=== PATIENT | male | born 1955 | race African-American/Black ===

== ENCOUNTER → 2018-09-03 | Day surgery (SDC) | payer BC ==
[2018-09-02 10:18] LABS: ANION GAP 13.5 mmol/L (8-16); BLOOD UREA NITROGEN 14 mg/dL (7-26); BUN/CREATININE RATIO 17 (6-25); CALCIUM 9.5 mg/dL (8.4-10.2); CARBON DIOXIDE 29 mmol/L (22-29); CHLORIDE 103 mmol/L (98-107); CREATININE, SERUM 0.82 mg/dL (0.72-1.25); EST GLOMERULAR FILTRATION RATE > 60 ML/MIN (60-); GLUCOSE 154 mg/dL (74-118); POTASSIUM 3.5 mmol/L (3.5-5.1); SODIUM 142 mmol/L (136-145)
[~2018-09-03] MED LIST: CLINDAMYCIN 600MG / 50ML 50 ML IV ONE; CRESTOR10 MG; FENTANYL CITRATE/PF 100MCG/2 ML INJ ONE; HYZAAR 50-12.51 EACH; JARDIANCE; LIDOCAINE HCL 2% LOCAL INJ 5 ML SDV VIAL INJ ONE; MIDAZOLAM HCL 2 MG/2 ML VIAL ONE; NORVIR100 MG; NOVOLOG100 UNIT/1; ONDANSETRON HCL INJ 2 MG/ML VIAL ONE; PREZISTA600 MG; PROPOFOL IV EMULSION 10 MG/ML 20 ML VIAL ONE; SEVOFLURANE INHAL SOLN 250 ML PEN BTL ONE; TOUJEO; TRUVADA 200 MG1 EACH; VALACYCLOVIR500 MG PO; VICTOZA 2-0.6 MG/0.1
--- OUTSIDE RECORDS SUMMARY | 2018-09-03 08:32 | XMS REPORT | Clinical Summary ---
Author Author [facility] Organization [facility] Address Unknown Phone Unavailable Care Team Providers Care Assistant Portfolio Manager Name Role Phone Aaron Mcgill MD PCP Allergies Active Allergy Reactions Severity Noted Date Comments Penicillins Shortness Of Breath High 01/22/2017 Sulfa (Sulfonamide Shortness Of Breath High 01/22/2017 Antibiotics) Current Medications Prescription Sig. Disp. Refills Start End Date Status Date VICTOZA 3-WANDA 0.6 mg/0.1 Inject 1.8 mg under the 01/14/20 Active mL (18 mg/3 mL) pen skin daily. 17 injector BD ULTRA-FINE ANTHONY PEN See Admin Instructions. 1 01/04/20 Active NEEDLES 32 gauge x 5/32" 17 needle NYSTOP 100,000 unit/gram Apply 1 application 15 g 2 05/28/20 Active powder topically daily. 17 insulin GLARGINE (TOUJEO Inject under the skin. Active SOLOSTAR) 300 unit/mL (1.5 mL) insulin pen empagliflozin (JARDIANCE) Take 1 tablet (25 mg 30 tablet 0 07/02/20 Active 25 mg tablet total) by mouth daily. 18 insulin ASPART (NovoLOG Inject 12 Units under the 10 mL 12 07/02/20 Active U-100 Insulin aspart) 100 skin 3 (three) times a 18 unit/mL injection day before meals. losartan-hydrochlorothiaz Take 1 tablet by mouth 90 tablet 1 07/02/20 Active naomi (HYZAAR) 50-12.5 mg once daily. 18 per tablet valACYclovir (VALTREX) Take 1 tablet (500 mg 90 tablet 1 07/02/20 Active 500 MG tablet total) by mouth once 18 daily. rosuvastatin (CRESTOR) 20 Take 1 tablet (20 mg 90 tablet 1 07/02/20 Active MG tablet total) by mouth once 18 daily. [id number] Take 1 Box by mouth 1 each 0 07/26/20 Active [id number] daily. 18 (MOVIPREP) 100-7.5-2.691 gram powder in packetIndications: Family history of colon cancer darunavir ethanolate Take 1 tablet (800 mg 90 tablet 1 08/01/20 10/30/19 Active (PREZISTA) 800 mg total) by mouth daily for 18 19 tabletIndications: HIV 90 days. (human immunodeficiency virus infection) ([facility]) emtricitabine-tenofovir Take 1 tablet by mouth 90 tablet 1 08/01/20 10/30/19 Active DF (TRUVADA) 200-300 mg daily for 90 days. 18 19 per tabletIndications: HIV (human immunodeficiency virus infection) ([facility]) ritonavir (NORVIR) 100 mg Take 1 capsule (100 mg 90 capsule 1 08/01/20 10/30/19 Active capsuleIndications: HIV total) by mouth daily for 18 19 (human immunodeficiency 90 days. virus infection) ([facility]) LEVEMIR FLEXTOUCH 100 Inject 1 mL as directed 3 12/22/19 07/02/20 Discontin unit/mL (3 mL) insulin daily. 17 18 ued pen ritonavir (NORVIR) 100 mg Take 100 mg by mouth 08/01/20 Discontin capsule daily. 18 ued darunavir (PREZISTA) 800 Take 800 mg by mouth 08/01/20 Discontin mg tablet daily. 18 ued insulin asp prt-insulin Inject under the skin. 07/02/20 Discontin ASPART (NovoLOG 70/30) 18 ued 100 unit/mL (70-30) injection levalbuterol (XOPENEX Inhale 1-2 puffs every 4 15 g 11 02/15/20 02/15/20 HFA) 45 mcg/actuation (four) hours as needed 17 18 inhaler for wheezing. losartan-hydrochlorothiaz Take 1 tablet by mouth 90 tablet 2 05/28/20 03/10/20 Discontin naomi (HYZAAR) 50-12.5 mg once daily. 17 18 ued per tablet valACYclovir (VALTREX) Take 1 tablet (500 mg 90 tablet 2 05/28/20 05/19/20 Discontin 500 MG tablet total) by mouth once 17 18 ued daily. rosuvastatin (CRESTOR) 20 Take 1 tablet (20 mg 90 tablet 2 05/28/20 03/10/20 Discontin MG tablet total) by mouth once 17 18 ued daily. triamcinolone (KENALOG) Apply topically 2 (two) 80 g 0 05/28/20 05/28/20 0.025 % ointment times a day. 17 18 rosuvastatin (CRESTOR) 20 TAKE 1 TABLET (20 MG 90 tablet 2 03/11/20 07/02/20 Discontin MG tablet TOTAL) BY MOUTH ONCE 18 18 ued DAILY. losartan-hydrochlorothiaz TAKE 1 TABLET BY MOUTH 90 tablet 2 03/11/20 07/02/20 Discontin naomi (HYZAAR) 50-12.5 mg ONCE DAILY. 18 18 ued per tablet valACYclovir (VALTREX) TAKE 1 TABLET (500 MG 90 tablet 2 05/20/20 05/28/20 Discontin 500 MG tablet TOTAL) BY MOUTH ONCE 18 18 ued DAILY. valACYclovir (VALTREX) TAKE 1 TABLET (500 MG 90 tablet 2 05/28/20 07/02/20 Discontin 500 MG tablet TOTAL) BY MOUTH ONCE 18 18 ued DAILY. emtricitabine-tenofovir Take 1 tablet by mouth 30 tablet 0 07/02/20 08/01/20 Discontin DF (TRUVADA) 200-300 mg daily. 18 18 ued per tablet Active Problems Problem Noted Date Polyp of colon 07/24/2018 Family history of colon cancer 07/24/2018 S/P partial colectomy 07/24/2018 Type 2 diabetes mellitus without complication, with long-term current use 03/01/2017 of insulin (HCC) Overview: No diabetic retinopathy Vision can fluctuate with changing blood glucose Combined forms of age-related cataract 03/01/2017 Overview: NSC, Cortical Defer surgery, near 20/20 OU with correction PVD (posterior vitreous detachment) 03/01/2017 Overview: No retinal breaks or tears History of radial keratotomy 03/01/2017 Overview: 8 cut OU Vision can fluctuate Encounters Date Type Specialty Care Team Description 09/02/2018 Clinical Infectious Diseases Norah Gonzalez MD Need for vaccination Support (Primary Dx) 08/12/2018 [facility] Gastroenterology Charan Medina MD Type 2 diabetes mellitus Encounter without complication, with long-term current use of insulin (HCC) (Primary Dx) 08/12/2018 Procedure Pass Gastroenterology 08/12/2018 Surgery Gastroenterology Charan Medina MD COLONOSCOPY with cold snare and cold biopsy polypectomy 08/10/2018 Anesthesia Gastroenterology Josef Banegas MD 08/09/2018 Telephone Gastroenterology Debra Zuniga MA 08/09/2018 Orders Only Gastroenterology Debra Zuniga MA 08/01/2018 Office Visit Infectious Diseases Norah Gonzalez MD HIV (human immunodeficiency virus infection) (HCC) (Primary Dx); custodial use of drug 07/26/2018 Orders Only Gastroenterology Debra Zuniga MA Family history of colon cancer (Primary Dx) 07/26/2018 Telephone Gastroenterology Debra Zuniga MA 07/24/2018 Office Visit Gastroenterology Charan Medina MD Polyp of colon, unspecified part of colon, unspecified type (Primary Dx); Family history of colon cancer; S/P partial colectomy 07/16/2018 Telephone Gastroenterology Nelson Bazan MD 07/09/2018 Orders Only Infectious Diseases Norah Gonzalez MD Human immunodeficiency virus I infection (Primary Dx); custodial use of drug 07/02/2018 Office Visit Family Medicine Aaron Mcgill MD Encounter for general adult medical examination with abnormal findings (Primary Dx); Hyperlipidemia, unspecified hyperlipidemia type; HIV (human immunodeficiency virus infection); Vitamin D deficiency; Essential hypertension; Type 2 diabetes mellitus without complication, with long-term current use of insulin; Colon cancer screening; Flu vaccine need 05/28/2018 Refill Family Aaron Rangel MD 05/19/2018 Refill Family Aaron Rangel MD 03/10/2018 Refill Family Medicine Aaron Mcgill MD after 09/02/2017 Immunizations Name Dates Previously Given Next Due FLUBLOK QUAD PF 07/02/2018 Hep A / Hep B 09/02/2018, 08/01/2018, 11/02/2010 Hep B, Unspecified 08/17/2011 INFLUENZA QUAD 07/29/2010 Pneumococcal Conjugate 06/15/2016 13-Valent Pneumococcal 06/28/2010 Polysaccharide Family History Medical History Relation Name Comments Cancer Father unknown Heart disease Father Heart failure Father Diabetes Mother Cancer Paternal stomach Uncle Cancer Paternal pancreatic Uncle Relation Name Status Comments Father Mother Paternal Uncle Paternal Uncle Social History Tobacco Use Types Packs/Day Years Used Date Former Smoker Cigarettes Smokeless Tobacco: Never Used Tobacco Cessation: Counseling Given: Yes Comments: quit at age of 18 years Alcohol Use Drinks/Week oz/Week Comments Yes occasionally Sex Assigned at Date Recorded Not on file Last Filed Vital Signs Vital Sign Reading Time Taken Blood Pressure 125/70 09/02/2018 2:17 PM [employer] Pulse 103 09/02/2018 2:17 PM [employer] Temperature 36.4 C (97.6 F) 09/02/2018 2:17 PM [employer] MANA[employer] Respiratory Rate 14 08/12/2018 9:59 AM CDT Oxygen Saturation 97% 09/02/2018 2:17 PM [employer] MANA[employer] Inhaled Oxygen - - Concentration Weight 110 kg (242 lb) 08/12/2018 7:17 AM CDT Height 165.1 cm (5' 5") 08/12/2018 7:17 AM CDT Body Mass Index 40.27 08/12/2018 7:17 AM CDT Plan of Treatment Date Type Specialty Care Team Description 12/05/2018 Office Visit Infectious Diseases Norah Gonzalez MD [address] [place] [address] [phone] 12/30/2018 Office Visit Family Medicine Aaron Mcgill MD [address] [facility] [address] [place] [address] [phone] 01/30/2019 Clinical Infectious Diseases Support Health Maintenance Due Date Last Done Comments DIABETIC FOOT EXAM 1965 COLON CANCER SCREENING 2005 SHINGRIX VACCINE (#1) 2005 ZOSTER VACCINE 2015 DIABETIC RETINAL EYE EXAM 03/01/2018 03/01/2017, 03/01/2017, 03/01/2017, Additional history exists INFLUENZA VACCINE Completed 07/02/2018, 07/29/2010 Procedures Procedure Name Priority Date/Time Associated Diagnosis Comments SURGICAL PATHOLOGY Routine 08/12/2018 Results for this REQUEST 11:32 AM CDT procedure are in the results section. POC GLUCOSE Routine 08/12/2018 Results for this 9:37 AM CDT procedure are in the results section. COLONOSCOPY 08/12/2018 Colon polyps 9:00 AM CDT POC GLUCOSE Routine 08/12/2018 Results for this 7:24 AM CDT procedure are in the results section. TB GOLD QUANTIFERON Routine 07/15/2018 Human immunodeficiency Results for this 2:03 PM CDT virus I infection procedure are in the termite helper use of drug results section. RPR (MONITOR) WITH REFLEX Routine 07/15/2018 Human immunodeficiency Results for this TO TITER (REFL) 8:08 AM CDT virus I infection procedure are in the termite helper use of drug results section. ZZHLA B5701 TEST Routine 07/15/2018 Human immunodeficiency Results for this 8:08 AM CDT virus I infection procedure are in the termite helper use of drug results section. [id number]-2-[id number] Routine 07/15/2018 Human immunodeficiency Results for this DEHYDROGENASE LEVEL 8:08 AM CDT virus I infection procedure are in the termite helper use of drug results section. TOXOPLASMA ABS IGG/IGM Routine 07/15/2018 Human immunodeficiency Results for this 8:08 AM CDT virus I infection procedure are in the termite helper use of drug results section. HEPATITIS C ANTIBODY Routine 07/15/2018 Human immunodeficiency Results for this 8:08 AM CDT virus I infection procedure are in the custodial use of drug results section. HEPATITIS B CORE ANTIBODY Routine 07/15/2018 Human immunodeficiency Results for this TOTAL 8:08 AM CDT virus I infection procedure are in the custodial use of drug results section. HEPATITIS B SURFACE Routine 07/15/2018 Human immunodeficiency Results for this ANTIBODY 8:08 AM CDT virus I infection procedure are in the termite helper use of drug results section. HEPATITIS B SURFACE Routine 07/15/2018 Human immunodeficiency Results for this ANTIGEN 8:08 AM CDT virus I infection procedure are in the termite helper use of drug results section. HEPATITIS A ANTIBODY Routine 07/15/2018 Human immunodeficiency Results for this TOTAL 8:08 AM CDT virus I infection procedure are in the termite helper use of drug results section. LIPID PANEL Routine 07/15/2018 Human immunodeficiency Results for this 8:08 AM CDT virus I infection procedure are in the custodial use of drug results section. T CELL LYMPHOCYTE SUBSET Routine 07/15/2018 Human immunodeficiency Results for this PANEL 4 8:08 AM CDT virus I infection procedure are in the custodial use of drug results section. HIV 1 RNA, QUANTITATIVE Routine 07/15/2018 Human immunodeficiency Results for this REAL TIME PCR 8:08 AM CDT virus I infection procedure are in the custodial use of drug results section. COMPREHENSIVE METABOLIC Routine 07/15/2018 Human immunodeficiency Results for this PANEL 8:08 AM CDT virus I infection procedure are in the termite helper use of drug results section. CBC WITH PLATELET AND Routine 07/15/2018 Human immunodeficiency Results for this DIFFERENTIAL 8:08 AM CDT virus I infection procedure are in the custodial use of drug results section. T-HELPER CELLS CD4/CD8 % Routine 07/02/2018 Results for this 10:09 AM CDT procedure are in the results section. MICROSCOPIC EXAMINATION Routine 07/02/2018 Results for this 10:09 AM CDT procedure are in the results section. HIV 1 RNA, QUANTITATIVE Routine 07/02/2018 HIV (human Results for this REAL TIME PCR 10:09 AM CDT immunodeficiency virus procedure are in the infection) results section. VITAMIN D 25 HYDROXY Routine 07/02/2018 Vitamin D deficiency Results for this LEVEL 10:09 AM CDT procedure are in the results section. URINALYSIS, AUTOMATED Routine 07/02/2018 Essential hypertension Results for this WITH MICROSCOPY 10:09 AM CDT procedure are in the results section. THYROID STIMULATING Routine 07/02/2018 Essential hypertension Results for this HORMONE 10:09 AM CDT procedure are in the results section. LIPID PANEL Routine 07/02/2018 Hyperlipidemia, Results for this 10:09 AM CDT unspecified procedure are in the hyperlipidemia type results section. HEMOGLOBIN A1C Routine 07/02/2018 Type 2 diabetes mellitus Results for this 10:09 AM CDT without complication, procedure are in the with long-term current results section. use of insulin COMPREHENSIVE METABOLIC Routine 07/02/2018 Hyperlipidemia, Results for this PANEL 10:09 AM CDT unspecified procedure are in the hyperlipidemia type results section. ECG 12-LEAD Routine 07/02/2018 Essential hypertension Results for this 9:53 AM CDT procedure are in the results section. after 09/02/2017 Results * Surgical pathology request (08/12/2018 11:32 AM) [facility] DEPARTMENT OF PATHOLOGY AND GENOMIC MEDICINE Surgical pathology report See link below for PDF Lab [facility] DEPARTMENT OF Report PATHOLOGY AND GENOMIC MEDICINE Result status This is Final Report for [facility] DEPARTMENT OF [id number] PATHOLOGY AND GENOMIC MEDICINE Performing Organization Address City/State/Zipcode Phone Number [facility] DEPARTMENT OF [address] [place] [address] PATHOLOGY AND GENOMIC MEDICINE * POC glucose (08/12/2018 9:37 AM) Only the most recent of 2 results within the time period is included. POC glucose 139 (H) 65 - 99 mg/dL [facility] DEPARTMENT OF Comment: PATHOLOGY AND No Action Needed GENOMIC MEDICINE [facility] Notified RN Meter ID: [id number] Early Childhood Teacher Assistant: Oscar Coughlin Performing Organization Address City/[facility]/Zipcode Phone Number [facility] DEPARTMENT OF [address] [place] [address] PATHOLOGY AND GENOMIC MEDICINE * TB GOLD Quantiferon (07/15/2018 2:03 PM) Quantiferon TB gold NEGATIVE NEGATIVE [facility] Comment: [place] Negative test result. M. tuberculosis complex infection unlikely. Quantiferon NIL value 0.04 IU/mL [facility] [place] Quantiferon mitogen NIL >10.00 IU/mL [facility] value [place] Quantiferon TB NIL value 0.04 IU/mL [facility] Comment: [place] The Nil tube value is used to determine if the patient has a preexisting immune response which could cause a false-positive reading on the test. In order for a test to be valid, the Nil tube must have a value of less than or equal to 8.0 IU/mL. The mitogen control tube is used to assure the patient has a healthy immune status and also serves as a control for correct blood handling and incubation. It is used to detect false-negative readings. The mitogen tube must have a gamma interferon value of greater than or equal to 0.5 IU/mL higher than the value of the Nil tube. The TB antigen tube is coated with the M. tuberculosis specific antigens. For a test to be considered positive, the TB antigen tube value minus the Nil tube value must be greater than or equal to 0.35 IU/mL. For additional information, please refer to [email or web address]/faq/QFT (This link is being provided for informational/ educational purposes only.) Specimen Blood Narrative Performed At [facility] 07/15/2018 FROM [id number] [email or web address] FASTING:NO AN UPDATE OR CORRECTION HAS BEEN MADE TO NAME FASTING: NO Other Results Text Performing Organization Information: Site ID: [id number] Name: [facility] Address: [address] [place] [phone] Director: Arline Ambrosio Performing Organization Address City/[facility]/Zipcode Phone Number [employer] [address] [address] * Toxoplasma Abs IgG/IgM (07/15/2018 8:08 AM) Toxoplasma IgG <7.20 IU/mL [facility] Comment: [facility] II IU/mL Interpretation ------ <7.20 Negative 7.20-8.79E quivocal >8.79 Positive Toxoplasma IgM <8.00 AU/mL [facility] Comment: [facility] AU/mL II Interpretation ----- <8.00 Negative 8.00-9.99 Equivocal >9.99 Positive Specimen Blood Narrative Performed At FASTING:YES [facility] COLLECTION REQUIREMENTS NOT MET. PATIENT ADVISED TO RETURN. FASTING: YES Other Results Text Performing Organization Information: Site ID: [id number] Name: [facility] Address: [address] [place] [phone] Director: Dr. Jose Alejandro Castillo Performing Organization Address [facility] Centercode Phone Number 2[employer] [address] [place] [address] II * T cell Lymphocyte Subset Panel 4 (07/15/2018 8:08 AM) CD4% 23 (L) 30 - 61 % [facility] CD4 absolute count 345 (L) 490 - 1,740 cells/uL [facility] [place] CD8% 51 (H) 12 - 42 % [facility] CD8 absolute count 777 180 - 1,170 cells/uL [facility] CD4/CD8 ratio 0.44 (L) 0.86 - 5.00 [facility] II Lymphocytes, absolute 1,518 850 - 3,900 cells/uL [facility] Specimen Blood Narrative Performed At FASTING:YES [facility] COLLECTION REQUIREMENTS NOT MET. PATIENT ADVISED TO RETURN. FASTING: YES Other Results Text Performing Organization Information: Site ID: [id number] Name: [facility] Address: [address] [place] [id number] Director: Dr. Jose Alejandro Castillo Performing Organization Address [facility] Centercoal Phone Number 2[employer] [address] [place] [address] II * RPR (Monitor) with Reflex to Titer (REFL) (07/15/2018 8:08 AM) RPR (monitor) w/refl NON-REACTIVE NON-REACTIVE [facility] Specimen Blood Narrative Performed At FASTING:YES [facility] COLLECTION REQUIREMENTS NOT MET. PATIENT ADVISED TO RETURN. FASTING: YES Other Results Text Performing Organization Information: Site ID: [id number] Name: [facility] Address: [address] [place] [phone] Director: Arline Ambrosio Performing Organization Address City/[facility] Medical Centercode Phone Number [employer] [address] [address] * HIV 1 RNA, QUANTITATIVE REAL TIME PCR (07/15/2018 8:08 AM) Only the most recent of 2 results within the time period is included. HIV-1 RNA by PCR, Qn <20 NOT DETECTED NOT DETECTED copies/mL [facility] II HIV-1 RNA by PCR, Qn <1.30 NOT DETECTED NOT DETECTED Log [facility] Comment: copies/mL [facility] This test was performed using II Real-Time Polymerase Chain Reaction. Reportable Range: 20 copies/mL to 10,000,000 copies/mL (1.30 log copies/mL to 7.00 log copies/mL). Narrative Performed At FASTING:YES [facility] COLLECTION REQUIREMENTS NOT MET. PATIENT ADVISED TO RETURN. FASTING: YES Other Results Text Performing Organization Information: Site ID: [id number] Name: [facility] Address: [address] [place] [phone] Director: Dr. Jose Alejandro Castillo Performing Organization Address City/[facility]/Zipcode Phone Number [id number] [phone] [place] [address] II * HLA B5701 test (07/15/2018 8:08 AM) HLA B 5701 typing Negative [facility] Comment: [facility] The allele HLA-B*5701 is CHANTILLY associated with Abacavir hypersensitivity reaction (HSR). A negative result for HLA-B*5701 does not rule out the possibility of Abacavir HSR. Genetic counseling as needed. RESULTS REVIEWED BY: Radha Rachel, Ph.D.,[facility] [employer], Molecular Genetics References: Santino Hunter, et al. Lancet. 2002 2:359(2255): 888-66 Santino Hunter et al. N Engl J Med. 2008 358(8): 568-47 Typing performed by using -PCR with reflex to the FDA-cleared LABType(R) SSO Kit. The -PCR portion of this test was developed and its analytical performance characteristics have been determined by [facility] [place], [place].It has not been cleared or approved by the U.S. Food and Drug Administration.This assay has been validated pursuant to the CLIA regulations and is used for clinical purposes. Narrative Performed At FASTING:YES [facility] COLLECTION REQUIREMENTS NOT MET. PATIENT ADVISED TO RETURN. FASTING: YES Other Results Text Performing Organization Information: Site ID: [facility] Name: [employer]/[employer] [facility] Address: [address] [place] [phone] Director: David Goodwin M.D.,PhD Performing Organization Address City/[facility]/Zipcode Phone Number [employer] [address] [place] [address] [place] * Hepatitis C antibody (07/15/2018 8:08 AM) Hepatitis C Ab NON-REACTIVE NON-REACTIVE [email or web address] [facility] Signal/cutoff 0.01 <1.00 [facility] [place] Specimen Blood Narrative Performed At FASTING:YES [facility] COLLECTION REQUIREMENTS NOT MET. PATIENT ADVISED TO RETURN. FASTING: YES Other Results Text Performing Organization Information: Site ID: [id number] Name: [facility] Address: [address] [place] [phone] Director: Arline Ambrosio Performing Organization Address [facility]/Zipcode Phone Number [employer] [place] [phone] * Hepatitis A antibody total (07/15/2018 8:08 AM) Hepatitis A total Ab NON-REACTIVE NON-REACTIVE [facility] [employer] [place] Specimen Blood Narrative Performed At FASTING:YES [facility] COLLECTION REQUIREMENTS NOT MET. PATIENT ADVISED TO RETURN. FASTING: YES Other Results Text Performing Organization Information: Site ID: INGRID Name: [facility] Address: [address] [place] [phone] Director: Arline Ambrosio Performing Organization Address [facility] [place] [address] * Ryznobc-5-clzshjodf dehydrogenase level (07/15/2018 8:08 AM) Jpxtcsa-7-ntgfgzyre 18.0 7.0 - 20.5 U/g Hgb [facility] dehydrogenase DIAGNOSTICS/[facility] Specimen Blood Narrative Performed At FASTING:YES [facility] COLLECTION REQUIREMENTS NOT MET. PATIENT ADVISED TO RETURN. FASTING: YES Other Results Text Performing Organization Information: Site ID: [id number] Name: [facility] Address: [address] [place] [phone] Director: Soraya Becerril MD,PhD,RONIT Performing Organization Address [facility] Phone Number [employer]/[address] [phone] [facility] [address] * Hepatitis B core antibody total (07/15/2018 8:08 AM) Hepatitis B core total Ab NON-REACTIVE NON-REACTIVE [email or web address] [facility] Specimen Blood Narrative Performed At FASTING:YES [facility] COLLECTION REQUIREMENTS NOT MET. PATIENT ADVISED TO RETURN. FASTING: YES Other Results Text Performing Organization Information: Site ID: [id number] Name: [facility] Address: [address] [place] [phone] Director: Arline Ambrosio Performing Organization Address [facility] [place] [address] * Hepatitis B surface antibody (07/15/2018 8:08 AM) Hepatitis B surface Ab NON-REACTIVE NON-REACTIVE [facility] [place] Specimen Blood Narrative Performed At FASTING:YES QUEST COLLECTION REQUIREMENTS NOT MET. PATIENT ADVISED TO RETURN. FASTING: YES Other Results Text Performing Organization Information: Site ID: [id number] Name: [facility] Address: [address] [place] [id number] Director: Arline Ambrosio Performing Organization Address [facility] [place] Phone Number [employer] [address] [place] [address] * Hepatitis B surface antigen (07/15/2018 8:08 AM) Hepatitis B surface Ag NON-REACTIVE NON-REACTIVE [facility] [place] Specimen Blood Narrative Performed At FASTING:YES QUEST COLLECTION REQUIREMENTS NOT MET. PATIENT ADVISED TO RETURN. FASTING: YES Other Results Text Performing Organization Information: Site ID: [id number] Name: [facility] Address: [address] [place] [phone] Director: Arline Ambrosio Performing Organization Address City/State/Zipcode Phone Number [facility] [email or web address] [address] [address] * CBC with platelet and differential (07/15/2018 8:08 AM) WBC 9.9 3.8 - 10.8 Thousand/uL [email or web address] [facility] RBC 4.50 4.20 - 5.80 Million/uL [facility] [place] HGB 13.9 13.2 - 17.1 g/dL [email or web address] [facility] HCT 41.2 38.5 - 50.0 % [facility] [place] MCV 91.6 80.0 - 100.0 fL [facility] [place] MCH 30.9 27.0 - 33.0 pg [facility] [place] MCHC 33.7 32.0 - 36.0 g/dL [facility] [place] RDW 13.8 11.0 - 15.0 % [facility] [place] Platelet count 235 140 - 400 Thousand/uL [facility] [employer] [place] MPV 9.0 7.5 - 12.5 fL [facility] [place] Neutrophils, absolute 7,692 1,500 - 7,800 cells/uL [facility] [place] Lymphocytes, absolute 1,475 850 - 3,900 cells/uL [facility] [place] Monocytes, absolute 525 200 - 950 cells/uL [facility] [place] Eosinophils, absolute 158 15 - 500 cells/uL [facility] [place] Basophils, absolute 50 0 - 200 cells/uL [facility] [place] Neutrophils 77.7 % [facility] [place] Lymphocytes 14.9 % [facility] [place] Monocytes 5.3 % [facility] [place] Eosinophils 1.6 % [facility] [place] Basophils + RC 0.5 % [facility] [place] Specimen Blood Narrative Performed At FASTING:YES QUEST COLLECTION REQUIREMENTS NOT MET. PATIENT ADVISED TO RETURN. FASTING: YES Other Results Text Performing Organization Information: Site ID: [id number] Name: [facility] Address: [address] [place] [phone] Director: Arline Ambrosio Performing Organization Address [facility]/Zipcode Phone Number [place] [place] [address] * Lipid panel (07/15/2018 8:08 AM) Only the most recent of 2 results within the time period is included. Cholesterol, total 157 <200 mg/dL [facility] [place] HDL cholesterol 41 >40 mg/dL [email or web address] [facility] Triglycerides 115 <150 mg/dL [email or web address] [facility] LDL cholesterol 95 mg/dL (calc) [facility] calculated Comment: [place] Reference range: <100 Desirable range <100 mg/dL for primary prevention; <70 mg/dL for patients with CHD or diabetic patients with > or=2 CHD risk factors. LDL-C is now calculated using the Yamile calculation, which is a validated novel method providing better accuracy than the Friedewald equation in the estimation of LDL-C. Ezekiel SS et al. YOLANDA. 2013;310(19): 7877-6533 (http://education.[employer]/faq/FNI352) Cholesterol/HDL ratio 3.8 <5.0 (calc) [email or web address] [facility] Non-HDL cholesterol 116 <130 mg/dL (calc) [facility] Comment: [place] For patients with diabetes plus 1 major ASCVD risk factor, treating to a non-HDL-C goal of <100 mg/dL (LDL-C of <70 mg/dL) is considered a therapeutic option. Specimen Blood Narrative Performed At FASTING:YES QUEST COLLECTION REQUIREMENTS NOT MET. PATIENT ADVISED TO RETURN. FASTING: YES Other Results Text Performing Organization Information: Site ID: [id number] Name: [facility] Address: [address] [place] [phone] Director: Arline Ambrosio Performing Organization Address [facility]/Zipcode [place] [address] * Comprehensive metabolic panel (07/15/2018 8:08 AM) Only the most recent of 2 results within the time period is included. Glucose 107 (H) 65 - 99 mg/dL [facility] Comment: [place] Fasting reference interval For someone without known diabetes, a glucose value between 100 and 125 mg/dL is consistent with prediabetes and should be confirmed with a follow-up test. BUN, whole blood 14 7 - 25 mg/dL [facility] Creatinine 0.84 0.70 - 1.25 mg/dL [facility] Comment: [place] For patients >49 years of age, the reference limit for Creatinine is approximately 13% higher for people identified as -Kyrgyz. EGFR Non-Afr. Kyr[place]z 94 > OR=60 mL/min/1.73m2 [facility] EGFR 109 > OR=60 mL/min/1.73m2 [facility] BUN/creatinine ratio NOT APPLICABLE 6 - 22 (calc) [facility] Sodium 140 135 - 146 mmol/L [facility] Potassium 3.2 (L) 3.5 - 5.3 mmol/L [email or web address] [facility] Chloride 101 98 - 110 mmol/L [facility] CO2 26 20 - 32 mmol/L [facility] Calcium 9.0 8.6 - 10.3 mg/dL [facility] Protein 7.1 6.1 - 8.1 g/dL [facility] Albumin, S 4.0 3.6 - 5.1 g/dL [facility] Globulin, total 3.1 1.9 - 3.7 g/dL (calc) [facility] Albumin/globulin ratio 1.3 1.0 - 2.5 (calc) [facility] Total bilirubin 0.4 0.2 - 1.2 mg/dL [facility] Alkaline phosphatase 79 40 - 115 U/L [facility] AST 18 10 - 35 U/L [facility] ALT 17 9 - 46 U/L [facility] Specimen Blood Narrative Performed At FASTING:YES QUEST COLLECTION REQUIREMENTS NOT MET. PATIENT ADVISED TO RETURN. FASTING: YES Other Results Text Performing Organization Information: Site ID: [id number] Name: [facility] Address: [address] [place] [phone] Director: Arline Ambrosio Performing Organization Address City/State/Zipcode Phone Number [facility] [email or web address] [place] [phone] * Microscopic Examination (07/02/2018 10:09 AM) WBC, UA 0-5 0 - 5 /hpf [facility] RBC, UA 0-2 0 - 2 /hpf [facility] Epithelial cells (non 0-10 0 - 10 /hpf [facility] renal) Mucus, UA Present Not Estab. [facility] Bacteria, UA None seen None seen/Few [facility] Narrative Performed At Performed at: [facility] [place], [id number] Crna: Ashvin Reyes MD, Phone:[phone] Performing Organization Address [facility] Phone Number [facility] * Vitamin D 25 hydroxy level (07/02/2018 10:09 AM) Vitamin D, 25-hydroxy 21.7 (L) 30.0 - 100.0 ng/mL [facility] Comment: Vitamin D deficiency has been defined by the [place] of [employer] and an Endocrine Society practice guideline as a level of serum 25-OH vitamin D less than 20 ng/mL (1,2). The Endocrine Society went on to further define vitamin D insufficiency as a level between 21 and 29 ng/mL (2). 1. IOM ([place] of [employer]). 2010. Dietary reference intakes for calcium and D. [place]: The National Academies Press. 2. James MF, Nicola FRANCISCO, Teena MONROE, et al. Evaluation, treatment, and prevention of vitamin D deficiency: an Endocrine Society clinical practice guideline. JCEM. 2010; 96(7):1911-30. Specimen Blood Narrative Performed At [facility]formed at: [facility] [place], [id number] Crna: Ashvin Reyes MD, Phone:[phone] Performing Organization Address [facility] Phone Number [facility] * Urinalysis, automated with microscopy (07/02/2018 10:09 AM) Specific gravity, urine 1.028 1.005 - 1.030 [facility] pH, urine 5.5 5.0 - 7.5 [facility] Color, UA Yellow Yellow [facility] Appearance Clear Clear [facility] WBC esterase, urine Negative Negative [facility] Protein, UA Negative Negative/Trace [facility] Glucose, urine 3+ (A) Negative [facility] Ketones, UA Negative Negative [facility] Occult blood, urine Negative Negative [facility] Bilirubin, UA Negative Negative [facility] Urobilinogen, UA 0.2 0.2 - 1.0 mg/dL [facility] Nitrite, UA Negative Negative [facility] Microscopic examination CommentComment: Microscopic [facility] follows if indicated. Microscopic examination See below:Comment: Microscopic [facility] was indicated and was performed. Specimen Urine Narrative Performed At Performed at:01 - [facility] [address] [place], [id number] Crna: Ashvin Reyes MD, Phone:[phone] Performing Organization Address City/State/Zipcode Phone Number [facility] * CD 4/8 subset (07/02/2018 10:09 AM) CD4 absolute count 411 359 - 1,519 /uL [facility] CD4% 24.2 (L) 30.8 - 58.5 % [facility] CD8 absolute count 881 109 - 897 /uL [facility] CD8% 51.8 (H) 12.0 - 35.5 % [facility] CD4/CD8 ratio 0.47 (L) 0.92 - 3.72 [facility] WBC 7.3 3.4 - 10.8 x10E3/uL [facility] RBC 4.38 4.14 - 5.80 x10E6/uL [facility] HGB 13.3 13.0 - 17.7 g/dL [facility] HCT 39.7 37.5 - 51.0 % [facility] MCV 91 79 - 97 fL [facility] MCH 30.4 26.6 - 33.0 pg [facility] MCHC 33.5 31.5 - 35.7 g/dL [facility] RDW 14.2 12.3 - 15.4 % [facility] Platelet count 283 150 - 379 x10E3/uL [facility] Neutrophils 67 Not Estab. % [facility] Lymphocytes 23 Not Estab. % [facility] Monocytes 5 Not Estab. % [facility] Eosinophils 4 Not Estab. % [facility] Basophils 1 Not Estab. % [facility] Neutrophils, absolute 4.9 1.4 - 7.0 x10E3/uL [facility] Lymphocytes, absolute 1.7 0.7 - 3.1 x10E3/uL [facility] Monocytes, absolute 0.4 0.1 - 0.9 x10E3/uL [facility] Eosinophils, absolute 0.3 0.0 - 0.4 x10E3/uL [facility] Basophils, absolute 0.0 0.0 - 0.2 x10E3/uL [facility] Immature granulocytes 0 Not Estab. % [facility] Immature grans (abs) 0.0 0.0 - 0.1 x10E3/uL [facility] Narrative Performed At [facility]formed at: [facility] [address] [place], [place] [id number] Crna: Ashvin Reyes MD, Phone:[phone] Performing Organization Address [facility] Phone Number [facility] * Thyroid stimulating hormone (07/02/2018 10:09 AM) TSH 0.530 0.450 - 4.500 uIU/mL [facility] Specimen Blood Narrative Performed At Performed at: [id number] Crna: Ashvin Reyes MD, Phone:[phone] Performing Organization Address [facility] Phone Number [facility] * Hemoglobin A1c (07/02/2018 10:09 AM) Hemoglobin A1C 9.1 (H) 4.8 - 5.6 % [facility] Comment: Prediabetes: 5.7 - 6.4 Diabetes: >6.4 Glycemic control for adults with diabetes: <7.0 Specimen Blood Narrative Performed At Performed at:[address] [place], [place] [address]CO[id number] Crna: Ashvin Reyes MD, Phone:[phone] Performing Organization Address [facility] Phone Number [facility] * ECG 12 lead (07/02/2018 9:53 AM) Ventricular rate 81 [facility] Atrial rate 81 [facility] NC interval 208 [facility] QRSD interval 94 [facility] QT interval 390 [facility] QTC interval 453 [facility] P axis 1 12 [facility] QRS axis 1 34 [facility] T wave axis 29 [facility] EKG impression Normal sinus rhythm-Incomplete [facility] MUSE right bundle branch block-Borderline ECG-In automated comparison with ECG of 14-FEB-2017 13:47,-No significant change was found- Performing Organization Address [facility] Phone Number [facility] MUSE [address] [place] [address] after 09/02/2017 Insurance Payer Benefit Subscriber ID Type Phone Address Plan / Group BCBS BCBS xxxxxxxxx PPO [place] PPO/[place] PPO
[2018-09-03 12:35] VITALS: BP 107/71
--- NOTE | 2018-09-03 13:58 | Operative Report ---
DATE OF PROCEDURE: September 03, 2018 BED LASTER: Sarbjit Johnson PA-C The patient was brought to the operating room for induction of anesthesia. Throughout this case, my PA's assistance was necessary for retraction of soft tissue and positioning of the extremity. This allows for efficient and technically successful execution of the operation and is considered medically necessary. PREOPERATIVE DIAGNOSIS: Left carpal tunnel syndrome. POSTOPERATIVE DIAGNOSIS: Left carpal tunnel syndrome. PROCEDURE: Left endoscopic carpal tunnel release. INDICATIONS: The patient is a 62-year-old gentleman who has clinic signs and symptoms consistent with severe left carpal tunnel syndrome. He has failed conservative management and would like to proceed with definitive intervention. The risks and benefits of an endoscopic versus open carpal tunnel release have been explained. He states he understands and wishes to proceed. DESCRIPTION OF PROCEDURE: The patient was brought to the operating room. He was placed under general anesthetic. Prophylactic antibiotics were given in the holding area. The upper extremity was prepped and draped in a sterile manner. A well-padded tourniquet was placed on the upper arm and inflated to 250 mmHg. An operative time out was performed. A 1-cm incision was made over the flexion crease of the wrist. The palmaris longus was retracted to the radial side of the wound. The flexor retinaculum was elevated and incised with a pair of sharp tenotomy scissors. An elevator was used to tease the tenosynovium off the undersurface of the transverse carpal ligament. Dilators were placed, and the hook of the hamate was palpated. The MicroAire endoscope was then placed into the carpal tunnel. The undersurface of the ligament was cleanly visualized without evidence of soft tissue interposition. The knife was deployed, and the ligament was cut from distal to proximal. Full-thickness cut was noted. The proximal retinaculum was then incised under direct visualization using a pair of blunt Metzenbaum scissors. The wound was irrigated and closed with 2 interrupted 4-0 nylon stitches. A sterile bandage was applied, and the patient was extubated. The patient was transferred to the recovery room in stable condition. Blood loss was less than 5 mL, and at the end of the procedure, needle and sponge counts were correct. Job#: [id number] EV
== END | disposition home or self-care (01) ==
LOC: OR 08:29
PROVIDERS: ATTEND Specialist
DX: G56.02 Carpal tunnel syndrome, left upper limb (principal); Z21 Asymptomatic human immunodeficiency virus [HIV] infection status; E11.9 Type 2 diabetes mellitus without complications; J45.909 Unspecified asthma, uncomplicated; G47.33 Obstructive sleep apnea (adult) (pediatric); I10 Essential (primary) hypertension; E78.5 Hyperlipidemia, unspecified; I44.0 Atrioventricular block, first degree; Z88.0 Allergy status to penicillin; Z88.2 Allergy status to sulfonamides; Z01.810 Encounter for preprocedural cardiovascular examination; Z01.812 Encounter for preprocedural laboratory examination; Z79.4 Long term (current) use of insulin; Z68.41 Body mass index [BMI] 40.0-44.9, adult; Z87.891 Personal history of nicotine dependence
CPT/HCPCS: 29848; 36415 ×2; 80048; 82948; 93005; J2001; J2250; J2405; J2704